=== PATIENT | female | born 1945 | race Caucasian/White ===

== ENCOUNTER 2024-05-02 10:03 | Day surgery (SDC) | payer MEDICARE, BC ==
[2024-05-02] VITALS (11 sets, daily range): BP systolic 121–135; BP diastolic 64–80; PULSE 16–71; RESP 15–17; TEMP 98.1; O2SAT 97–100
[~2024-05-02] VITALS: Ht 157.5 cm; Wt 69.0 kg
[2024-05-02] MEDS: ceFAZolin 2gm in dextrose, iso 50 ML IV ONE (05:30)
[~2024-05-02 10:03] MED LIST: MULT-1074 PO; VALA500T41; ZOLP10TA PO; [UNRECOGNIZED DRUG - CODE] PO
[2024-05-02] MEDS: famotidine 20mg tablet PO ONE (10:19)
[2024-05-02] MEDS: aprepitant 40mg capsule PO ONE (10:19)
[2024-05-02] MEDS: ringers solution, lacted 1,000 ML IV SCH (10:20)
[2024-05-02 11:07] LABS: BASOPHILS # (AUTO) 0.1 X10'3 (0-0.2); BASOPHILS % (AUTO) 0.9 % (0-1); EOSINOPHILS # (AUTO) 0.4 X10'3 (0-0.9); EOSINOPHILS % (AUTO) 6.1 % (0-6); LYMPHOCYTES # (AUTO) 1.5 X10'3 (1.1-4.8); LYMPHOCYTES % (AUTO) 22.4 % (21-51); MEAN CORPUSCULAR HGB CONC 33.5 g/dL (33.0-36.5); MEAN CORPUSCULAR VOLUME 92.7 FL (78-98); MEAN PLATELET VOLUME 7.1 FL (7.4-10.4); MONOCYTES # (AUTO) 0.5 X10'3 (0-0.9); NEUTROPHILS # (AUTO) 4.3 X10'3 (1.8-7.7); NEUTROPHILS % (AUTO) 62.6 % (42-75); PRE OP HEMATOCRIT 40.8 % (35.0-45.0); PRE OP HEMOGLOBIN 13.6 g/dL (12.0-16.0); PRE OP PLATELET COUNT 296 X10'3 (140-440); PRE OP WHITE BLOOD COUNT 6.8 10'3 (4.8-10.8); RED CELL DISTRIBUTION WIDTH 13.1 % (11.5-14.5)
[2024-05-02 11:16] LABS: ALANINE AMINOTRANSFERASE 27 U/L (12-78); ALBUMIN 3.4 G/DL (3.4-5.0); ALBUMIN/GLOBULIN RATIO 0.9 (1.1-1.5); ALKALINE PHOSPHATASE 63 IU/L (46-116); ANION GAP 5 (8-16); ASPARTATE AMINO TRANSFERASE 24 U/L (10-37); BILIRUBIN,TOTAL 0.4 MG/DL (0.1-1.0); BLOOD UREA NITROGEN 21 MG/DL (7-18); BUN/CREATININE RATIO 25.9 (10.0-20.0); CALCIUM 8.6 MG/DL (8.5-10.1); CHLORIDE 108 MMOL/L (99-107); CREATININE 0.81 MG/DL (0.40-0.90); GLUCOSE 82 MG/DL (70-104); POTASSIUM 3.8 MMOL/L (3.5-5.1); SODIUM 143 MMOL/L (135-145); eCRCL 45 ML/MIN; eGFR 68 ML/MIN
[2024-05-02] MEDS ORDERED: LIDOcaine 1% 30ml preserv. free vial ONE (12:14)
[2024-05-02] MEDS ORDERED: BUPIVACAINE liposomal/PF 13.3 MG/ML 10mL vial IM ONE (12:15)
[2024-05-02] MEDS ORDERED: BUPIVAcaine 2.5mg/ml inj 50ml vial (contains preservative) ONE (12:15)
[2024-05-02] MEDS ORDERED: methylene blue (5mg/ml) 50mg/10ml ampul IV ONE (12:15)
[2024-05-02] MEDS ORDERED: midazolam 1 mg/ML 2ml injection ONE (12:59)
[2024-05-02] MEDS ORDERED: fentaNYL/PF 50MCG/1 ML 2ML syringe ONE (12:59)
[2024-05-02] MEDS ORDERED: propofol inj 20 ML IV ONE (13:00)
[2024-05-02] MEDS ORDERED: ondansetron/PF 4mg/2ml inj ONE (13:00)
[2024-05-02] MEDS ORDERED: LIDOcaine 2% (20mg/ml) 5ml vial ONE (13:00)
[2024-05-02] MEDS ORDERED: sevoflurane 250ml liquid IH ONE (13:01)
[2024-05-02] MEDS ORDERED: acetaminophen 1,000mg/100ml IV 100 ML IV ONE (13:01)
[2024-05-02] MEDS ORDERED: fentaNYL/PF 50MCG/1 ML 2ML syringe IV PRN ×2 (13:35)
[2024-05-02] MEDS ORDERED: ringers solution, lacted 1,000 ML IV SCH (13:35)
[2024-05-02] MEDS ORDERED: ondansetron/PF 4mg/2ml inj IV PRN (13:35)
[2024-05-02] MEDS ORDERED: proMETHazine 25mg rectal suppository RC PRN (13:35)
[2024-05-02] MEDS ORDERED: hydrALAZINE 20mg/ml inj. IV PRN (13:35)
[2024-05-02] MEDS ORDERED: proCHLORperazine 10 MG/2 ml inj IV PRN (13:35)
[2024-05-02] MEDS ORDERED: morphine 2 MG/ML inj. syringe IV PRN (13:35)
[2024-05-02] MEDS ORDERED: labetalol 20mg/4ml (5mg/ml) syringe IV PRN (13:35)
[2024-05-02] MEDS ORDERED: morphine 4 MG/ML inj SYRINge IV PRN (13:35)
== END 2024-05-02 15:25 | disposition home or self-care (01) ==
LOC: PAS 10:03
PROVIDERS: ATTEND Surgery
DX: C50.211 Malignant neoplasm of upper-inner quadrant of right female breast (principal); M79.89 Other specified soft tissue disorders; G47.33 Obstructive sleep apnea (adult) (pediatric); Z98.890 Other specified postprocedural states; Z88.5 Allergy status to narcotic agent; Z88.8 Allergy status to other drugs, medicaments and biological substances; Z79.899 Other long term (current) drug therapy
CPT/HCPCS: 19301; 36415; 80053; 82948; 85025; 88341; 88342; 93005; J0131; J0690; J1100; J2003; J2250; J2405; J2704; J3010; J3490; J7030; J7120; J8501; Z7506; Z7508; Z7512; 88307; A4215; A4618; A6258; A6449; A7000; J0666; Q9968